=== PATIENT | male | born 1955 | race Caucasian/White ===

== ENCOUNTER 2025-09-26 10:36 | Emergency (ER) | payer MEDICARE, MEDICAID ==
[~2025-09-26] VITALS: Ht 165.1 cm; Wt 70.0 kg
[~2025-09-26 10:36] MED LIST: AMLO5TAB88 PO; ASPI-1497 PO; ATOR40TA70 PO; HYDR50TA40 MT
[2025-09-26 10:48] VITALS: O2SAT 97
[2025-09-26 11:17] VITALS: BP 192/93; PULSE 88; RESP 20; TEMP 36.8; O2SAT 95
[2025-09-26 11:59] LABS: BASOPHILS % 1.9 % (0.0-2.0); EOSINOPHILS % 9.1 % (0.0-5.0); HEMATOCRIT. 32.8 % (42.0-52.0); HEMOGLOBIN. 10.8 g/dL (14.0-18.0); LYMPHOCYTES % 15.0 % (20.0-50.0); MEAN PLATELET VOLUME 7.7 fl (7.4-10.4); MONOCYTES % 8.4 % (2.0-8.0); NEUTROPHILS % 65.6 % (40.0-76.0); PLATELET 164 x1000/uL (130-400); RED BLOOD CELL COUNT 3.47 mill/uL (4.7-6.1); RED CELL DISTRIBUTION WIDTH 15.3 % (11.6-14.6)
[2025-09-26 12:13] LABS: UREA NITROGEN BLOOD 34 mg/dL (9-23)
[2025-09-26 12:15] LABS: ASPARTATE AMINOTRANSFERASE 13 IU/L (<34); BILIRUBIN DIRECT < 0.1 mg/dL (<=3.0); BILIRUBIN TOTAL 0.3 mg/dL (0.1-1.0); PROTEIN TOTAL 6.9 g/dL (6.0-8.3)
[2025-09-26 12:20] LABS: CREATININE 7.3 mg/dL (0.6-1.3)
[2025-09-26] MEDS ORDERED: SODIUM POLYSTYRENE SULFONATE 15 G/60 ML BOT PO ONE (14:00)
[2025-09-26] MEDS: SODIUM ZIRCONIUM CYCLOSILICATE 10GM/PACKET PO SCH (15:05)
[2025-09-26] MEDS ORDERED: CEFTRIAXONE 1GM/50ML 50 ML IV ONE (19:15)
== END 2025-09-26 19:54 | disposition left against medical advice (07) ==
LOC: ER 10:36 → EDBEDREQ 19:44 → ER 19:54 → CMPBEDREQ 09-27 07:58
DX: E87.5 Hyperkalemia (principal); N12 Tubulo-interstitial nephritis, not specified as acute or chronic; E11.22 Type 2 diabetes mellitus with diabetic chronic kidney disease; I12.0 Hypertensive chronic kidney disease with stage 5 chronic kidney disease or end stage renal disease; N18.6 End stage renal disease; Z79.899 Other long term (current) drug therapy; Z90.49 Acquired absence of other specified parts of digestive tract; Z99.2 Dependence on renal dialysis
CPT/HCPCS: 36415; 80048; 80076; 85025; 99283